=== PATIENT | female | born 1995 | race Asian ===

== ENCOUNTER 2018-03-08 22:14 | Emergency (ER) | payer BC ==
[2018-03-08 22:20] VITALS: BP 125/77; PULSE 85; TEMP 98.2; BMI 17.4
[2018-03-08 22:42] LABS: URINE APPEARANCE CLOUDY; URINE BILIRUBIN NEGATIVE (<2.0 mg/dL); URINE COLOR YELLOW; URINE GLUCOSE (UA) NEGATIVE (NEGATIVE); URINE KETONE NEGATIVE (NEGATIVE); URINE LEUK ESTERASE 3+ (NEGATIVE); URINE NITRITE POSITIVE (NEGATIVE); URINE PROTEIN 2+ (NEGATIVE); URINE UROBILINOGEN NEGATIVE mg/dL (0.2-1.0)
[2018-03-08 22:43] LABS: HCG,QUALITATIVE URINE Negative
--- NOTE | 2018-03-08 22:58 | PDOC ---
History of Present Illness - General History Source: Patient - History of Present Illness Initial Comments: 03/08/18 23:11 22 year old female c/o urinary frequency, hematuria and dysuria with symptoms starting 6 hours prior to arrival. denies vaginal bleeding/ vaginal discharge. denies new partners. denies fever. chills, NVD, flank pain history of pyelonephritis 4 years ago with no complications 03/08/18 23:21 <Disha Angel - Last Filed: 03/08/18 23:34> <Donna Calderón - Last Filed: 03/08/18 23:52> - General Chief Complaint: Hematuria Stated Complaint: HEMATURIA Time Seen by Provider: 03/08/18 22:21 Past History - Past Medical History COPD: No Other medical history: pyelonephritis 1 x 4 year s ago - Suicide/Smoking/Psychosocial Hx Smoking History: Never smoked <Disha Angel - Last Filed: 03/08/18 23:34> <Donna Calderón - Last Filed: 03/08/18 23:52> - Past Medical History Allergies/Adverse Reactions: Allergies Allergy/AdvReac Type Severity Reaction Status Date / Time No Known Allergies Allergy Verified 03/08/18 22:20 Home Medications: Ambulatory Orders Cefuroxime Axetil [Ceftin -] 500 mg PO Q12H #20 tablet 03/08/18 Phenazopyridine HCl [Pyridium] 100 mg PO TID PRN #30 tablet 03/08/18 Review of Systems - Review of Systems Able to Perform ROS?: Yes Is the patient limited Spanish proficient: No Constitutional: No: Symptoms Reported, See HPI, Chills, Diaphoresis, Fever, Loss of Appetite, Malaise, Night Sweats, Weakness, Weight Stable, Unintentional Wgt. Loss, Unexplained wgt Loss, Other ABD/GI: No: Symptoms Reported, See HPI, Abdominal Distended, Abd. Pain w/ defecation, Blood Streaked Bowels, Constipated, Diarrhea, Difficulty Swallowing , Nausea, Poor Appetite, Poor Fluid Intake, Rectal Bleeding, Vomiting, Indigestion, Abdominal cramping, Tarry Stools, Other : Yes: Burning, Dysuria, Frequency, Hematuria <Disha Angel - Last Filed: 03/08/18 23:34> *Physical Exam - Vital Signs Last Vital Signs Temp Pulse Resp BP Pulse Ox 98.2 F 85 18 125/77 100 03/08/18 22:17 03/08/18 22:17 03/08/18 22:17 03/08/18 22:17 03/08/18 22:17 - Physical Exam General Appearance: Yes: Appropriately Dressed Respiratory/Chest: positive: Lungs Clear Gastrointestinal/Abdominal: positive: Normal Bowel Sounds, Tender (sup[rapubic tenderness), Soft Musculoskeletal: negative: CVA Tenderness Extremity: positive: Normal Capillary Refill Integumentary: positive: Normal Color, Dry, Warm Neurologic: positive: Fully Oriented, Alert, Normal Mood/Affect <Disha Angel - Last Filed: 03/08/18 23:34> - Vital Signs Last Vital Signs Temp Pulse Resp BP Pulse Ox 98.2 F 85 18 125/77 100 03/08/18 22:17 03/08/18 22:17 03/08/18 22:17 03/08/18 22:17 03/08/18 22:17 <Donna Calderón - Last Filed: 03/08/18 23:52> ED Treatment Course - ADDITIONAL ORDERS Additional order review: Laboratory Results 03/08/18 22:31 Urine HCG, Qual Negative <Disha Angel - Last Filed: 03/08/18 23:34> - ADDITIONAL ORDERS Additional order review: Laboratory Results 03/08/18 22:31 Urine Color Yellow Urine Appearance Cloudy Urine pH 6.0 Ur Specific [place] 1.019 Urine Protein 2+ H Urine Glucose (UA) Negative Urine Ketones Negative Urine Blood 3+ H Urine Nitrite Positive Urine Bilirubin Negative Urine Urobilinogen Negative Ur Leukocyte Esterase 3+ H Urine WBC (Auto) 979 Urine RBC (Auto) 903 Ur Epithelial Cells Rare Urine Bacteria Moderate Urine HCG, Qual Negative - Medications Given in the ED: ED Medications Discontinued Medications Generic Name Dose Route Start Last Admin Trade Name Freq PRN Reason Stop Dose Admin Phenazopyridine HCl 200 mg 03/08/18 23:14 03/08/18 23:24 Pyridium - PO 03/08/18 23:15 200 mg ONCE ONE Administration <Donna Calderón - Last Filed: 03/08/18 23:52> Progress Note - Progress Note Progress Note: Cystitis P: Ua Urine culture urine <Stanley,Mini S. - Last Filed: 03/08/18 23:34> *DC/Admit/Observation/Transfer <Disha Angel - Last Filed: 03/08/18 23:34> - Attestations Physician Attestion: I independently examined and evaluated this patient in conjunction with Disha Angel NP. I reviewed the case and agree with the her assessment, diagnosis and disposition. Pt requested that I evaluate her as she had concern about receiving cephalosporin for UTI. I explained that hematuria is very common with cystitis. She was concerned that this is a complicated UTI, however, she has no history of any structural, functional, or mechanical abnormalities, so this is uncomplicated. She has low back pain but no flank pain, nausea or vomiting, so this is not pyelonephritis. She has no CVAT on exam. I explained that we commonly use cephalosporins for UTIs, particularly keflex (in this case ceftin was chosen because it appears on the hospital antibiogram and can be checked when sensitivity results available). Agree with SALES CLERK management. <Donna Calderón - Last Filed: 03/08/18 23:52> Diagnosis at time of Disposition: Cystitis - Discharge Dispostion Disposition: HOME - Prescriptions Prescriptions: Cefuroxime Axetil [Ceftin -] 500 mg PO Q12H #20 tablet Phenazopyridine HCl [Pyridium] 100 mg PO TID PRN #30 tablet PRN Reason: Pain - Referrals Referrals: Amrita Pizarro MD [Primary Care Provider] - - Patient Instructions Printed Discharge Instructions: Urinary Tract Infection Additional Instructions: drink plenty of fluids take pyridium three times daily after meals for painful urination. it may turn your urine orange. take cefuroxime as prescribed Additional Instructions: * Please call your personal physician to report your Emergency Department visit and to report your progress, if any. * If there is no improvement in symptoms in 2 days call your physician. * Return to the Emergency Department for any worsening symptoms. - Post Discharge Activity
[2018-03-08 23:07] LABS: EPI CELLS RARE /HPF (FEW); URINE BACTERIA MODERATE /hpf (NONE SEEN)
[2018-03-08] MEDS ORDERED: PHENAZOPYRIDINE HCL 100 MG TABLET (FP) PO ONE (23:14)
[2018-03-08] MEDS ORDERED: CEFUROXIME AXETIL 500 MG TABLET PO ONE (23:15)
[2018-03-08] MEDS ORDERED: PHENAZOPYRIDINE HCL 100 MG TABLET (FP) ONE (23:16)
== END 2018-03-09 00:05 | disposition home or self-care (01) ==
LOC: JER 22:14
DX: N30.00 Acute cystitis without hematuria (principal)
CPT/HCPCS: 81003; 81015; 84703; 87086; 87186; 99282-25